=== PATIENT | female | born 1930 | race Caucasian/White ===

== ENCOUNTER 2018-01-24 09:54 | Day surgery (SDC) | payer MEDICARE, MEDICAID ==
[~2018-01-24 09:54] MED LIST: ACETAMINOPHEN 325 MG TAB PO; MIDAZOLAM INJ 2 MG/2 ML VIAL (J2250) As Ordered; PHENYLEPHRINE HCL 10 % OPHTH. SOL 5ML OS; fentaNYL 100 MCG/2 ML INJECTION (J3010) As Ordered
[2018-01-24 11:18] LABS: BEDSIDE GLUCOSE 123 MG/DL (83-110)
[2018-01-24] MEDS: PHENYLEPHRINE 2.5% OPHTH SOL 2ML OS (11:37)
[2018-01-24] MEDS: CYCLOPENTOLATE 2% OPHTH SOLN 2ML BTL OS (11:37)
[2018-01-24] MEDS: LIDOCAINE 3.5 % 1ML OPHTH TOPICAL GEL OU (11:37)
[2018-01-24] MEDS: OFLOXACIN 0.3 % (OCUFLOX) OPTH SOL 5ML OS (11:38)
[2018-01-24] MEDS: TROPICAMIDE 1% OPHTH SOLN 2ML OS (11:38)
[2018-01-24] MEDS: POVIDONE-IODINE 5% OPHTH PREP SOL 30ML As Ordered (13:10)
[2018-01-24] MEDS: MOXIFLOXACIN IN BSS 0.25MG/0.25ML INTRACAMERAL INJ (OR EYE ONLY)(J2280) As Ordered (13:15)
[2018-01-24] MEDS: BSS with VANC/TOB/EPI for EYE CASES IR (13:15)
[2018-01-24] MEDS: HEALON DUET (HEALON 10MG/ML 0.55ML & HEALON ENDOCOAT 30MG/ML 0.85ML) As Ordered (13:15)
[2018-01-24] MEDS: LIDOCAINE 1% SDV 5 ML VIAL As Ordered (13:15)
[2018-01-24] MEDS: TRIAMCINOLONE PRES FR 40 MG/ML 1ML(TRIESENCE)(OR EYE ONLY)(J3300 PER 1MG) As Ordered (13:15)
[2018-01-24] MEDS ORDERED: AcetaZOLAMIDE 500 MG ER CAP As Ordered (13:57)
[2018-01-24] MEDS ORDERED: TRIMETHOBENZAMIDE 300 MG CAP PO (14:00)
[2018-01-24] MEDS: AcetaZOLAMIDE 500 MG ER CAP PO (14:05)
== END 2018-01-24 14:20 | disposition home or self-care (01) ==
LOC: M SDC 09:54
DX: H26.9 Unspecified cataract (principal); I10 Essential (primary) hypertension; E11.9 Type 2 diabetes mellitus without complications; Z79.899 Other long term (current) drug therapy; Z79.84 Long term (current) use of oral hypoglycemic drugs
CPT/HCPCS: 66984

== ENCOUNTER 2018-01-31 10:09 | Day surgery (SDC) | payer MEDICARE, MEDICAID ==
[~2018-01-31 10:09] MED LIST changes: -ACETAMINOPHEN 325 MG TAB PO; -MIDAZOLAM INJ 2 MG/2 ML VIAL (J2250) As Ordered; +PHENYLEPHRINE HCL 10 % OPHTH. SOL 5ML OD; -PHENYLEPHRINE HCL 10 % OPHTH. SOL 5ML OS; -fentaNYL 100 MCG/2 ML INJECTION (J3010) As Ordered
[2018-01-31] MEDS ORDERED: MIDAZOLAM INJ 2 MG/2 ML VIAL (J2250) As Ordered (10:59)
[2018-01-31] MEDS ORDERED: fentaNYL 100 MCG/2 ML INJECTION (J3010) As Ordered (10:59)
[2018-01-31] MEDS: OFLOXACIN 0.3 % (OCUFLOX) OPTH SOL 5ML OD (11:54)
[2018-01-31] MEDS: CYCLOPENTOLATE 2% OPHTH SOLN 2ML BTL OD (11:55)
[2018-01-31] MEDS: PHENYLEPHRINE 2.5% OPHTH SOL 2ML OD (11:55)
[2018-01-31] MEDS: LIDOCAINE 3.5 % 1ML OPHTH TOPICAL GEL OU (11:55)
[2018-01-31] MEDS: TROPICAMIDE 1% OPHTH SOLN 2ML OD (11:55)
[2018-01-31 12:17] LABS: BEDSIDE GLUCOSE 120 MG/DL (83-110)
[2018-01-31] MEDS: POVIDONE-IODINE 5% OPHTH PREP SOL 30ML As Ordered (13:50)
[2018-01-31] MEDS: LIDOCAINE 1% SDV 5 ML VIAL As Ordered (13:53)
[2018-01-31] MEDS: BSS with VANC/TOB/EPI for EYE CASES IR (13:55)
[2018-01-31] MEDS: TRIAMCINOLONE PRES FR 40 MG/ML 1ML(TRIESENCE)(OR EYE ONLY)(J3300 PER 1MG) As Ordered (13:58)
[2018-01-31] MEDS: MOXIFLOXACIN IN BSS 0.25MG/0.25ML INTRACAMERAL INJ (OR EYE ONLY)(J2280) As Ordered (13:59)
[2018-01-31] MEDS: HEALON DUET (HEALON 10MG/ML 0.55ML & HEALON ENDOCOAT 30MG/ML 0.85ML) As Ordered (13:59)
== END 2018-01-31 14:38 | disposition home or self-care (01) ==
LOC: M SDC 10:09
DX: H26.9 Unspecified cataract (principal); I10 Essential (primary) hypertension; E78.00 Pure hypercholesterolemia, unspecified; E11.9 Type 2 diabetes mellitus without complications; M12.9 Arthropathy, unspecified; L57.0 Actinic keratosis; R29.890 Loss of height; B35.1 Tinea unguium; R26.89 Other abnormalities of gait and mobility; R23.8 Other skin changes; L53.9 Erythematous condition, unspecified; M25.561 Pain in right knee; I86.8 Varicose veins of other specified sites; Z79.899 Other long term (current) drug therapy; Z78.0 Asymptomatic menopausal state; Z79.84 Long term (current) use of oral hypoglycemic drugs
CPT/HCPCS: 66984